=== PATIENT | female | born 1970 | race Caucasian/White ===

== ENCOUNTER → 2020-05-27 09:32 | Outpatient (BNVA) | payer OTHER, SELFPAY | PROVIDERS: Family Provider Family Medicine; Visit Provider Family Medicine | DX: Z13.6 Encounter for screening for cardiovascular disorders (principal) | CPT/HCPCS: 80053; 80061; 85025 ==

== ENCOUNTER 2021-03-30 07:49 | Outpatient (CLI) | payer BC, SELFPAY ==
--- NOTE | 2021-03-30 07:54 | MM_ITS ---
WS: [id number] SCREENING DIGITAL MAMMOGRAM WITH CAD HISTORY: SCREENING COMPARISON: 05/04/2017 and 04/15/2016 Bilateral CC and MLO views submitted. Computer aided detection analyzed. Breast composition: The breasts are heterogeneously dense, which may obscure small masses. Focal asym metry in the posterior RIGHT breast against the chest wall on the CC projection. This appears to be a boubacar the nipple line on the lateral projection. This asymmetry has become more prominent since the la st examination. No calcifications. MM/[place] [id number] IMPRESSION: BI-RADS: 0-Incomplete: Need additional imaging evaluation FOLLOW UP: Need Additional Imaging RIGHT breast: Spot compression views (CC and MLO). True ML. Ultrasound to follo w if abnormality persists.
--- NOTE | 2021-03-30 08:49 | XR_ITS ---
WS: [id number] XR elbow RT min 3V* [id number] REASON FOR EXAM: R ELBOW PAIN FINDINGS: No fracture or focal bone lesion. Joint spaces of the right elbow are relatively well-preserved. Old organized periosteal reaction along the lateral aspect of the humeral metaphysis and lateral cond ylar region region. There is mild osteophytosis of the coronoid process. 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
== END 2021-03-30 07:50 | disposition home or self-care (01) ==
PROVIDERS: PCP Family Medicine; Visit Provider Family Medicine
DX: Z12.31 Encounter for screening mammogram for malignant neoplasm of breast (principal); M19.021 Primary osteoarthritis, right elbow
CPT/HCPCS: 73080; 77067

== ENCOUNTER 2021-04-14 10:49 | Outpatient (CLI) | payer BC, SELFPAY ==
--- NOTE | 2021-04-14 10:58 | US_ITS ---
WS: [id number] ADDITIONAL VIEWS RIGHT BREAST RIGHT breast ultrasound, limited HISTORY: RT BREAST MASS COMPARISON: 03/30/2021, 05/04/2017, 04/15/2016 and 03/10/2011 Compression views right CC and MLO projection. True ML also submitted. Dense focal area of fibrogland ular tissue in the posterior RIGHT breast central to the nipple. This has been present off and on ove r prior studies dating back to 2013. On the additional views appears more similar to prior examinatio ns. Ultrasound is directed to the 12:00 axis posteriorly. There is very dense fibroglandular tissue. Ther e is no discrete mass or abnormal enhancement. US/US breast RT limited* [id number] IMPRESSION: BI-RADS: 2-Benign FOLLOW-UP: 1 Year Follow-up The dense fibroglandular tissue posteriorly in the RIGHT breast consistent with focal glandular tissue. After additional views very similar to the study from 2013.
== END 2021-04-14 10:50 | disposition home or self-care (01) ==
PROVIDERS: PCP Family Medicine; Visit Provider Family Medicine
DX: N63.10 Unspecified lump in the right breast, unspecified quadrant (principal)
CPT/HCPCS: 76642; 77065

== ENCOUNTER → 2021-05-04 13:51 | Outpatient (BNVA) | payer BC, SELFPAY | PROVIDERS: PCP Family Medicine; Visit Provider Surgery | DX: Z20.822 Contact with and (suspected) exposure to COVID-19 (principal) | CPT/HCPCS: 87635 ==

== ENCOUNTER 2021-05-06 08:20 | Day surgery (SDC) | payer BC, SELFPAY ==
[2021-05-01 13:15] VITALS: BMI 25.0
--- NOTE | 2021-05-06 08:59 | P.ANESASSM_ITS ---
Pre-Anesthetic Assessment Height/Weight: Height 1.65 m Weight 68.039 kg Operation Date: 05/06/21 10:15 Proposed Procedures p Colonoscopy 97932/z12.11(Not Applicable) - Terrell Patel MD Familial anesthetic complications: Noen Last intake: > 8hrs Social Alcohol (2 gins a night), Tobacco and No tobacco Exam alert, oriented x 3, clear to auscultation bilaterally and regular rate & rhythm Airway Mallampati: Class II Dentition: other (crowns) Pulmonary None reported CV/HEM None reported None reported Hepatic None reported GI None reported Metabolic None reported Musc/skel None reported Neuropsych None reported Anesthetic Plan ASA status: 2 Anesthesia: MAC Risk of > 500 ml blood loss (7ml/kg in children): No Medications/Allergies Home Medications Medication Instructions Recorded Confirmed Last Taken Type zolpidem 5 mg tablet (Ambien) 5 mg PO .at bedtime tab 05/27/20 05/01/21 Unknown History Allergies Allergy/AdvReac Type Severity Reaction Status Date / Time No Known Allergies Allergy Unverified 05/27/20 08:53 [facility] Anesthesia Medical History (Updated 05/28/20 @ 07:06 by Renate Hernández DO) Insomnia Post-menopausal Surgical History (Updated 05/27/20 @ 09:12 by Renate Hernández DO) H/O tubal ligation History of ankle surgery Right - 2003 History of endometrial ablation Family History Mother Cancer breast Social History Smoking and tobacco status: former smoker Alcohol intake: current Alcohol intake frequency: 0-2 Drinks per Day Alcohol type: hard liquor Data Anesthesia Cardiac Studies: No Data to Display
[2021-05-06 09:27] VITALS: BP 103/76; PULSE 74; RESP 18; TEMP 36.1; O2SAT 99
[2021-05-06] MEDS: sodium chloride 0.9% 1,000 ML 30 ML IV (09:38)
--- NOTE | 2021-05-06 10:41 | P.HP_ITS ---
Same Day Surgery H&P Indication for Procedure/HPI DATE OF PROCEDURE: May 06, 2021 CHIEF COMPLAINT/INDICATIONFOR SURGICAL PROCEDURE: Screening colonoscopy PREOP DIAGNOSIS: Screening colonoscopy PLANNED PROCEDURE: Operation Date: 05/06/21 10:15 Proposed Procedures p Colonoscopy 48785/z12.11(Not Applicable) - Terrell Patel MD History of present illness: This is a pleasant 51 years old female patient presents to my practice for screening colonoscopy. Patient denies any bleeding per rectum or history of colon cancer or nonintentional weight loss and she never had a colonoscopy before. ROS All systems have been reviewed negative except as per the above or per problem list Medications/Allergies* Home Medications Medication Instructions Recorded Confirmed Type zolpidem 5 mg tablet (Ambien) 5 mg PO .at bedtime tab 05/27/20 05/01/21 History Allergies/Adverse Reactions Allergy/AdvReac Type Severity Reaction Status Date / Time No Known Allergies Allergy Verified 05/06/21 10:46 Current Medications: Generic Name Dose Route Start Last Admin Trade Name Freq PRN Reason Stop Dose Admin Sodium Chloride 1,000 mls @ 30 mls/hr 05/06/21 08:45 05/06/21 09:38 Sodium Chloride 0.9% IV 05/07/21 08:44 30 mls/hr .Q24H PELON Administration Pertinent History/Comorbid Conditions* Medical History (Updated 05/28/20 @ 07:06 by Renate Hernández DO) Insomnia Post-menopausal Surgical History (Updated 05/27/20 @ 09:12 by Renate Hernández DO) H/O tubal ligation History of ankle surgery Right - 2003 History of endometrial ablation Family History (Updated 05/27/20 @ 08:56 by Nadege Turner LPN) Cancer Mother breast Social History Smoking and tobacco status: former smoker Alcohol intake: current Alcohol intake frequency: 0-2 Drinks per Day Alcohol type: hard liquor Pertinent Exam Findings alert, oriented x 3, clear to auscultation bilaterally, regular rate & rhythm and procedure specific exam findings (Abdominal examination nontender nondistended soft) Recommendations Surgery/Procedure today (Colonoscopy with possible biopsy) Other Plans: Plan of care; After thorough history and physical examination and reviewing the chart, plan to perform screening colonoscopy. I discussed with the patient in details the risks,benefits,alternatives and indications.The risk of aspiration, bleeding, soft tissue injury, perforation of the colon and other potential concomitant complications were explained to the patient in details,also the potential need for Laproscoy/Laparotomy to repair any related complications including but not limited to colectomy and or Closotomy.The patient understood this well and did agree to proceed. Rationale was carefully and clearly discussed with the patient.Appropriate informed consent have been reviewed and signed All questions have been answered and all concerns have been addressed to patient's satisfaction. Verbal and written Instructions were given to the patient for colonoscopy prep Coding Level of Care Code Acute Cross Cut Sawyer for Ethan Weldon
[2021-05-06 11:10] VITALS: BP 104/66; PULSE 66; RESP 20; TEMP 36.1; O2SAT 97
[2021-05-06 11:26] VITALS: BP 108/82; PULSE 70; RESP 18; O2SAT 97
--- NOTE | 2021-05-06 12:23 | ANE.PACU2 ---
Inpatient post-anesthesia follow up: Airway intact: Yes Vital signs: Temperature 97.0 F Pulse Rate 70 Respiratory Rate 18 Blood Pressure 108/82 Pulse Oximetry 97 Oxygen Delivery Me thod Room Air Oxygen Flow Rate Fraction of Inspir ed Oxygen Hydration adequate: Yes Nausea and vomiting: No Pain level: 1 Mental status: Baseline
== END 2021-05-06 11:30 | disposition home or self-care (01) ==
PROVIDERS: PCP Family Medicine; Visit Provider Surgery
PROC: 0DJD8ZZ Inspection of Lower Intestinal Tract, Via Natural or Artificial Opening Endoscopic (ICD-10-PCS; CPT 45378; principal; 2021-05-06 10:15)
DX: Z12.11 Encounter for screening for malignant neoplasm of colon (principal); K64.4 Residual hemorrhoidal skin tags; Z87.891 Personal history of nicotine dependence
CPT/HCPCS: 45378; J2704; J7030

== ENCOUNTER 2021-05-27 06:00 | Outpatient (RCR) | payer BC, SELFPAY | END 2021-06-20 23:59 | disposition home or self-care (01) | LOC: SPT 06:00 | PROVIDERS: PCP Family Medicine; Referring Provider Specialist; Visit Provider Specialist | DX: M77.11 Lateral epicondylitis, right elbow (principal) | CPT/HCPCS: 97033; 97110; 97140; 97161 ==

== ENCOUNTER 2021-06-21 06:00 | Outpatient (RCR) | payer BC, SELFPAY | END 2021-07-08 23:59 | disposition home or self-care (01) | LOC: SPT 06:00 | PROVIDERS: PCP Family Medicine; Referring Provider Specialist; Visit Provider Specialist | DX: M77.11 Lateral epicondylitis, right elbow (principal) | CPT/HCPCS: 97110; 97140 ==

== ENCOUNTER 2022-04-28 12:27 | Outpatient (CLI) | payer OTHER, SELFPAY ==
--- NOTE | 2022-04-28 13:06 | MM_ITS ---
WS: [id number] Bilateral screening 3D tomosynthesis digital mammogram, 04/28/2022 Clinical Data: SCREENING Comparison: 04/14/2021, 04/09/2021, 05/04/2017, 04/15/2016, 12/20/2014, 07/11/2013, 11/27/2003. Findings: The breast parenchymal pattern shows heterogeneous density. No spiculated masses or clustered calcifi cations are seen. There are no secondary signs of carcinoma. MM/[place] [id number] Impression: 1. Negative bilateral mammogram unchanged. 2. Recommend annual screening mammograms. BIRADS: 1-Negative FOLLOW UP: 1 Year Follow-up The CAD parimutuel ticket checker was used.
== END 2022-04-28 12:28 | disposition home or self-care (01) ==
LOC: RAD 12:33
PROVIDERS: PCP Family Medicine; Visit Provider Family Medicine
DX: Z12.31 Encounter for screening mammogram for malignant neoplasm of breast (principal)
CPT/HCPCS: 77063; 77067

== ENCOUNTER → 2022-07-06 14:05 | Outpatient (BNVA) | payer OTHER, SELFPAY | PROVIDERS: PCP Family Medicine; Visit Provider Clinical Nurse Specialist Adult Health | DX: Z00.00 Encounter for general adult medical examination without abnormal findings (principal) | CPT/HCPCS: 87624 ==

== ENCOUNTER 2023-05-05 11:16 | Outpatient (CLI) | payer OTHER, SELFPAY ==
--- NOTE | 2023-05-05 11:21 | MM_ITS ---
WS: [id number] BILATERAL SCREENING DIGITAL TOMOSYNTHESIS MAMMOGRAM WITH CAD HISTORY: SCREENING COMPARISON: 04/28/2022, 04/14/2021 and 05/04/2017 Bilateral CC and MLO views with tomosynthesis and synthetic mammography submitted. Computer aided det ection analyzed. Breast composition: The breasts are heterogeneously dense, which may obscure small masses. No suspici ous masses, microcalcifications or architectural distortion. Scattered bilateral asymmetries within e ach breast. There is a stable nodule in the inferior lateral LEFT breast which may be a lymph node. N o new mass or nodule. IMPRESSION: MM/[place] [id number] BI-RADS: 2-Benign FOLLOW UP: 1 Year Follow-up
== END 2023-05-05 11:17 | disposition home or self-care (01) ==
LOC: RAD 11:20
PROVIDERS: PCP Family Medicine; Visit Provider Family Medicine
DX: Z12.31 Encounter for screening mammogram for malignant neoplasm of breast (principal)
CPT/HCPCS: 77063; 77067

== ENCOUNTER 2024-06-04 12:23 | Outpatient (CLI) | payer OTHER, SELFPAY ==
--- NOTE | 2024-06-04 12:40 | MM_ITS ---
WS: [id number] BILATERAL 3D TOMOSYNTHESIS DIGITAL SCREENING MAMMOGRAPHY WITH CAD CLINICAL INFORMATION: Screening mammogram HISTORY: Screening mammogram. No current complaints. COMPARISON: 2023 TECHNIQUE: Bilateral CC and MLO views. FINDINGS: The breasts are composed of heterogeneous fibroglandular density tissue, which can limit the detection of small underlying mass lesions. No suspicious mass, asymmetry, calcifications, or architectural distortion. No evidence of malignancy. MM/MM scr tomosynthesis [id number] IMPRESSION: DENSITY: The breasts are heterogeneously dense, which may obscure small masses. BI-RADS: 1 - Negative FOLLOW UP: 1 Year Follow-up Recommend return to annual screening mammography.
== END 2024-06-04 12:24 | disposition home or self-care (01) ==
PROVIDERS: PCP Family Medicine; Visit Provider Family Medicine
DX: Z12.31 Encounter for screening mammogram for malignant neoplasm of breast (principal); R92.333 Mammographic heterogeneous density, bilateral breasts
CPT/HCPCS: 77063; 77067

== ENCOUNTER → 2024-06-07 11:06 | Outpatient (BNVA) | payer OTHER, SELFPAY | PROVIDERS: PCP Family Medicine; Visit Provider Family Medicine | DX: Z00.00 Encounter for general adult medical examination without abnormal findings (principal); R53.81 Other malaise; R53.83 Other fatigue; R16.0 Hepatomegaly, not elsewhere classified; Z51.81 Encounter for therapeutic drug level monitoring; Z13.6 Encounter for screening for cardiovascular disorders | CPT/HCPCS: 80053; 80061; 84443; 85025; 85610 ==